=== PATIENT | male | born 1990 | race African-American/Black ===

== ENCOUNTER 2017-08-07 09:06 | Emergency (ER) | payer OTHER ==
[~2017-08-07] VITALS: Ht 177.8 cm; Wt 120.5 kg
[~2017-08-07 09:06] MED LIST: IBUP-103 PO; MAGIC1 PO; MULT-506 PO; MYC10 PO
[2017-08-07 09:11] VITALS: TEMP 36.9; Ht 177.8 cm; Wt 120.5 kg
[2017-08-07] MEDS ORDERED: MAGIC1 PO (09:45)
[2017-08-07] MEDS ORDERED: MYC10 PO (09:45)
--- NOTE | 2017-08-07 09:56 | EMERGENCY ROOM VISIT NOTE ---
History Report prepared by Edwin: Richelle Valenzuela Under the Supervision of: Dr. Terry Wang M.D. First contact with patient: 09:19 Chief Complaint: OTHER COMPLAINT Stated Complaint: SWOLLEN MOUTH Nursing Triage Summary: pt reports mouth is swollen started last night. feels it may be thrush. had it last year feels similiar History of Present Illness The patient is a 27 year old male with a past medical history of thrush and seasonal allergies who presents to the ED with a cc of persistent swelling in his mouth beginning last evening. Positive nausea, rhinorrhea, swelling in his lips. Negative shortness of breath. He currently rates his discomfort as a 2/ 10 in severity. The patient reports that he ate chips and water last evening. He denies any history of food or drug allergies. The patient reports increased pain with talking or moving his tongue. He denies any oral intake since last evening. The patient reports that his symptoms feel similar to when he had thrush last year. Source of History: patient Onset: last evening Position: other (mouth) Symptom Intensity: 2/10 Quality: other (swelling) Timing: other (persistent) Modifying Factors (Worsening): other (talking and moving tongue) Associated Symptoms: + nausea, No SOB Note: Associated Symptoms: swelling in lips, rhinorrhea Review of Systems See HPI for pertinent positives and negatives. A total of ten systems were reviewed and were otherwise negative. Past Medical & Surgical Medical Problems: (1) No significant past medical history Surgical Problems: (1) History of wisdom tooth extraction Family History FH: cancer FH: diabetes mellitus FH: heart disease Social History Smoking Status: Current Every Day Smoker Alcohol Use: occasionally Marital Status: single Housing Status: lives alone Occupation Status: [employer] student Current/Historical Medications No Active Prescriptions or Reported Meds Allergies Coded Allergies: No Known Allergies (Unverified , 08/07/17) Physical Exam Vital Signs Date Time Temp Pulse Resp B/P (MAP) Pulse Ox O2 Delivery O2 Flow Rate FiO2 08/07/17 10:11 61 18 127/71 96 Room Air 08/07/17 09:11 36.9 63 18 134/70 96 Room Air Physical Exam GENERAL: Awake, alert, well-appearing, NAD HENT: Normocephalic, atraumatic. EYES: Normal conjunctiva. Sclera non-icteric. No obvious lip or tongue swelling , no dental pain, no abscess noted, no sublingual or submental swelling, posterior oropharynx is clear, no tonsillar deviation or uvular swelling, no stridor NECK: Supple. No nuchal rigidity. FROM. RESPIRATORY: CTAB, no rhonchi, wheezing, crackles CARDIAC: RRR, no MRG NEURO: GCS 15, CN 2-12 intact, moves all 4s on command SKIN: No rash or jaundice noted. Medical Decision & Procedures ED Course 923: The patient was evaluated in room B10. A complete history and physical exam was performed by Dr. Fox, 1st year Resident. 947: The patient was evaluated in room B10. A complete history and physical exam was performed. I discussed the test results with him and I discussed the treatment plan. He verbalized complete understanding and agreement. He is ready to go home shortly. Medical Decision Differential diagnosis: Etiologies such as viral syndrome, tonsillitis, streptococcal pharyngitis, mononucleosis, peritonsillar abscess, retropharyngeal abscess, otitis, pneumonia , influenza, as well as others were entertained. The patient is a 27 year old male with a past medical history of thrush and seasonal allergies who presents to the ED with a cc of persistent swelling in his mouth beginning last evening. Patient was seen and evaluated at the bedside after being seen by the resident. Patient did have some complaints of some perioral and/or lip swelling. Patient denies any difficulty with breathing. Patient states that was seen her last year for some similar symptoms and had been diagnosed and treated for thrush. Patient does not use any inhalers. He has no prior history of HIV, AIDS, immunosuppression, diabetes, or chronic steroid use. Patient's parents is clear. Patient does smoke. Patient was counseled on smoking cessation. Patient has no stridor. Patient was fairly well-appearing did not meet any Centor criteria that required any strep testing (score of 1). Patient did not have any angioedema or sublingual or submental swelling that was concerning for a possible deep space neck infection or medication reaction. Patient was treated similarly as he was in the past as he may have some sort of element of esophagitis and/or thrush. Patient was agreeable to this. Patient was deemed suitable for outpatient follow-up and treatment. Patient was given strict follow -up, discharge, and return precautions. All questions were answered. Patient was deemed suitable for outpatient follow-up at this time. Patient agreed with the plan of care and was safely discharged home. Medication Reconcilliation Current Medication List: was personally reviewed by me Impression Primary Impression: Thrush Additional Impression: Encounter for smoking cessation counseling Scribe Attestation The scribe's documentation has been prepared under my direction and personally reviewed by me in its entirety. I confirm that the note above accurately reflects all work, treatment, procedures, and medical decision making performed by me. Departure Information Dispostion Home / Self-Care Prescriptions No Active Prescriptions or Reported Meds Referrals No Doctor, Assigned (PCP) Forms HOME CARE DOCUMENTATION FORM, IMPORTANT VISIT INFORMATION, WORK / SCHOOL INSTRUCTIONS Patient Instructions ED Sm[facility] Cessation, [facility], Thrush Oral Additional Instructions Please return to the emergency department if you have worsening or recurrent symptoms not amenable to at-home treatment. Please call for a follow-up appointment with her primary care physician. Please take your medications as prescribed. If you have other concerns and/or complaints please feel free to also call your primary care physician's office or return the ED for further evaluation, management, and treatment. Take your medications as prescribed. Please consider smoking cessation. Continue to practice good oral hygiene he may use things like mouthwash and toothpaste to pressure or teeth. You may take 600 mg Ibuprofen every 6 hours as needed for pain with food for no more than 2 consecutive days. You may take tylenol 1000 mg every 6 hours as needed for pain. You may take motrin and tylenol separately or at the same time. Take your medications as prescribed. If taking an antibiotic consider taking a probiotic and/or eating yogurt, but at the least, please take with food as it can cause upset stomach. If culture results are not available at discharge, if they are positive for concern of infection, you will be informed of the results as soon as they are available. If you were seen between 11pm and 7AM all radiology reads will be re-read by our in house staff. If any major discrepancies are discovered, you will be notified. You have been examined and treated today on an emergency basis only. This is not a substitute for, or an effort to provide, complete comprehensive medical care. It is impossible to recognize and treat all injuries or illnesses in a single emergency department visit. It is therefore important that you follow up closely with [facility], your PCP, and/or your specialist(s). Call as soon as possible for an appointment. Thank you for your time and consideration. I look forward to speaking with you again soon. Please don't hesitate to call us if you have any questions. Problem Qualifiers
--- NOTE | 2017-08-07 10:01 | EMERGENCY ROOM VISIT NOTE ---
History First contact with patient: 09:39 Chief Complaint: OTHER COMPLAINT Stated Complaint: SWOLLEN MOUTH Nursing Triage Summary: pt reports mouth is swollen started last night. feels it may be thrush. had it last year feels similiar History of Present Illness The patient is a 27 year old male who presents to the Emergency Room with complaints of: mouth swelling since last night. Reports having chips and water which he has had before after which he noticed mouth swelling. Does not hurt to swallow but has not ate or drank anything since. Reports 2/10 pain when moving tongue. No pain when mouth at rest. Associated with mild nausea. Last year had similar symptoms and was diagnosed/treated for thrush. Pt did not take any medications. Reports hx of seasonal allergies with chronic rhinorrhea for which he takes Claritin but no inhalers. Denies medication or food allergies. Review of Systems see below Constitutional: No fever, No chills ENT: + nasal symptoms (rhinorrhea), + problem reported (mouth swelling), No sore throat Respiratory: No shortness of breath Cardiovascular: No chest pain Abdomen: + nausea, No vomiting, No diarrhea, No constipation Genitourinary - Male: No dysuria Past Medical/Surgical History Medical Problems: (1) No significant past medical history Surgical Problems: (1) History of wisdom tooth extraction Family History FH: cancer FH: diabetes mellitus FH: heart disease Social History Smoking Status: Current Every Day Smoker Alcohol Use: occasionally Marital Status: single Housing Status: lives alone Occupation Status: [employer] student Current/Historical Medications No Active Prescriptions or Reported Meds Physical Exam Vital Signs Date Time Temp Pulse Resp B/P (MAP) Pulse Ox O2 Delivery O2 Flow Rate FiO2 08/07/17 09:11 36.9 63 18 134/70 96 Room Air Physical Exam see below General Appearance: no apparent distress Head: normocephalic, atraumatic Eyes: normal inspection, PERRL ENT: TMs normal, + nasal congestion, + pertinent finding (no significant edema or posterior pharyngeal erythema noted, no exudates or palatal petechiae noted ) Neck: supple, no adenopathy Respiratory/Chest: lungs clear, normal breath sounds Cardiovascular: regular rate, rhythm Abdomen / GI: normal bowel sounds, non tender, soft Medical Decision & Procedures Medical Decision 27y/o with hx of seasonal allergies, previous hx of thrush and smoking presents with oral edema since last night consist with likely recurrent oral candidiasis vs. strep pharyngitis vs. allergic reaction based on history and exam findings. -Centor criteria 1 - no testing or tx indicated for strep pharyngitis -Given similar symptoms as last year which was successfully treated for oral candidiasis prescribed Clotrimazole and Magic Swizz -Discussed smoking cessation and improving oral hygiene -Pt stable to be discharged home Impression Primary Impression: Candidiasis of mouth Additional Impression: Oral candidiasis Departure Information Dispostion Home / Self-Care Condition GOOD Prescriptions No Active Prescriptions or Reported Meds Forms WORK / SCHOOL INSTRUCTIONS, HOME CARE DOCUMENTATION FORM, IMPORTANT VISIT INFORMATION Patient Instructions Thrush Oral, My [facility] Problem Qualifiers
[2017-08-07 10:11] VITALS: BP 127/71; PULSE 61; O2SAT 96
== END 2017-08-07 10:49 | disposition home or self-care (01) ==
LOC: C.EDB 09:07
DX: B37.0 Candidal stomatitis (principal); Z71.6 Tobacco abuse counseling; F17.200 Nicotine dependence, unspecified, uncomplicated; Z83.3 Family history of diabetes mellitus